=== PATIENT | male | born 1955 | race Caucasian/White ===

== ENCOUNTER 2020-04-04 11:32 | Outpatient (CLI) | payer MEDICARE ==
--- NOTE | 2020-04-04 11:52 | RAD ---
Exam: Left second toe 3 views HISTORY: Pain and soft tissue ulcer COMPARISON: None FINDINGS: No radiographic evidence of osteomyelitis.. Joint spaces. No erosive or destructive changes . Small soft tissue ulcer at the tip of the digit may be present. Defect is difficult to appreciate. IMPRESSION: No radiographic evidence of osteomyelitis..
== END 2020-04-04 11:33 | disposition home or self-care (01) ==
LOC: BICRAD 11:32
PROVIDERS: ATTEND Podiatrist
DX: L97.529 Non-pressure chronic ulcer of other part of left foot with unspecified severity (principal); M20.42 Other hammer toe(s) (acquired), left foot; M79.675 Pain in left toe(s)